=== PATIENT | male | born 1990 | race Caucasian/White ===

== ENCOUNTER 2021-07-28 11:18 | Emergency (ER) | payer BC, SELFPAY ==
--- NOTE | 2021-07-28 11:36 | ED.URI ---
HPI - URI/Sore Throat General Chief Complaint: Upper Respiratory Infection Stated Complaint: cough,sorethroat Time Seen by Provider: 07/28/21 11:47 Source: patient and RN notes reviewed Mode of arrival: ambulatory Limitations: no limitations History of Present Illness HPI Narrative: 31-year-old male presents with concern for 7-day history of cough, sore throat, body aches and fatigue. Reports today is the worst he has felt. He has taken 2 at home negative COVID test. Reports history of strep throat. Reports concern for strep throat. Denies shortness of breath MD elicited complaint: cough and sore throat Related Data Allergies Allergy/AdvReac Type Severity Reaction Status Date / Time No Known Allergies Allergy Unverified 07/22/21 08:06 Review of Systems Review of Systems: CONSTITUTIONAL: Reports malaise. Denies chills, sweats, or fever. EYES: Denies visual changes, redness, or discharge. ENT: Reports rhinorrhea, congestion, sore throat. Denies sinus pain, otalgia CARDIOVASCULAR: Denies chest pain, palpitations, or edema. RESPIRATORY: Reports cough. Denies dyspnea. GASTROINTESTINAL: Denies abdominal pain, nausea, vomiting. Reports diarrhea SKIN: Denies rash or itching. MUSCULOSKELETAL: Reports myalgia. NEUROLOGIC: Denies headache. All systems reviewed & are unremarkable except as noted in HPI and below PMFSH Past Medical History Medical History Anxiety and depression History of gastroschisis Lipids abnormal Surgical History Surgical History [place] teeth removed Family History Family History Other Diabetes mellitus Family history of coronary artery disease Family history of hypercholesterolemia Social History Social History Smoking status: Never smoker Alcohol intake: current Comments At time of signature, agree with nursing past medical, surgical, social and family history. There is no relevant family history pertinent to the presenting complaint Exam Narrative: GENERAL: Well-appearing, well-nourished, and in no acute distress. HEAD: Normocephalic EYES: PERRLA, conjunctivae clear ENT: Nares clear. Mucous membranes moist. TM pearly jaramillo with dull light reflex bilaterally; no tragal tenderness. Oropharynx not erythematous without lesions. Tonsils not enlarged and without exudate, no drooling, no hoarseness, no trismus, uvula midline. NECK: Supple. No lymphadenopathy CHEST: Clear to auscultation, breath sounds equal. No wheezing, rhonchi, rales, or stridor. No respiratory distress, speaks in full sentences. HEART: Regular rate and rhythm. No murmur heard. SKIN: Warm, dry, no rash. NEURO: Alert and oriented x3. PSYCH: Normal mood and affect Course Course Emergency Course: Patient is aware of diagnosis, understands and agrees to treatment plan. Anticipatory guidance given. Patient agrees to follow-up as directed and is aware of reasons to seek care at the emergency department. Portions of this record may have been created with voice recognition software Level of Care: Express Care Visit Vital Signs Vital signs: Reviewed. MDM - URI/Sore Throat MDM Narrative Medical decision making narrative: Differential diagnosis considered: Plascencia virus, strep pharyngitis, allergic rhinitis, upper respiratory tract infection, sinusitis, rhinosinusitis, nasopharyngitis. viral pharyngitis, otitis media, otitis externa, pneumonia, bronchitis, viral cough syndrome, viral syndrome, and influenza. Exam findings show no acute concerns or changes; patient is non-toxic appearing and is in no distress. Patient is appropriate for outpatient treatment and follow-up. Lab Data Attestation: I reviewed the patient's lab results. Critical Care Time Critical Care Time Critical Care Time: No Discharge Plan Discharge
[2021-07-28 11:40] VITALS: BP 138/79; PULSE 97; RESP 18; TEMP 36.3; O2SAT 100
== END 2021-07-28 12:30 | disposition home or self-care (01) ==
PROVIDERS: Emergency Provider Nurse Practitioner; PCP Family Medicine
DX: J02.9 Acute pharyngitis, unspecified (principal); B34.9 Viral infection, unspecified; F41.9 Anxiety disorder, unspecified; F32.A Depression, unspecified
CPT/HCPCS: 87081; 87426; 87880; 99213; C9803; G0463

== ENCOUNTER 2021-10-02 18:22 | Emergency (ER) | payer BC, SELFPAY ==
--- NOTE | ~2021-10-02 | XR_ITS ---
EXAMINATION: XR wrist RT min 3V EXAM DATE: 10/02/2021 18:38 INDICATION: Fall Today , Rt Wrist Pain, Posterior Lateral Deformity. TECHNIQUE: Right wrist frontal, frontal with ulnar deviation, oblique and lateral projections obtain ed and reviewed. There is no prior study for comparison. FINDINGS: Acute closed posttraumatic and mildly comminuted fracture of the right radial distal metaph ysis, probable extension into the radiocarpal joint. Mild volar displacement. There is also suspicion of mild scapholunate joint space widening could indicate at least partial dis sociation, ligamentous injury. The ulna is unremarkable. IMPRESSION: 1. Acute mildly comminuted right radial distal metaphyseal fracture into radiocarpal joint. 2. Suspicion of at least partial scapholunate tear. Reviewed, dictated and finalized at location G. IMPRESSION: 1. Acute mildly comminuted right radial distal metaphyseal fracture into radio carpal joint. 2. Suspicion of at least partial scapholunate tear.
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
--- NOTE | 2021-10-02 19:59 | PC.NURSE ---
Pts CMS intact distally after splint placement. ERNP in to evaluate splint. Pt reports feeling a little tight but has full sensation and mobility. Pt states he does not think it feels to tight. Pt educated on signs of compartment syndrome. Pt cerbalized understanding.
[2021-10-02 20:10] VITALS: BP 112/81; PULSE 118; RESP 18; O2SAT 98
== END 2021-10-02 20:10 | disposition home or self-care (01) ==
LOC: ANHED 19:49
PROVIDERS: Emergency Provider Nurse Practitioner Family; PCP Family Medicine
DX: S59.291A Other physeal fracture of lower end of radius, right arm, initial encounter for closed fracture (principal); V00.131A Fall from skateboard, initial encounter; Y93.51 Activity, roller skating (inline) and skateboarding
CPT/HCPCS: 29125; 73110; 99284; A4565

== ENCOUNTER 2022-03-15 09:48 | Emergency (ER) | payer BC, SELFPAY ==
--- NOTE | 2022-03-15 09:54 | ED.URI ---
HPI - URI/Sore Throat General Stated Complaint: covid symptoms Time Seen by Provider: 03/15/22 09:54 Source: patient Mode of arrival: ambulatory Limitations: no limitations History of Present Illness HPI Narrative: Mr. Martinez is a 31-year-old male patient presenting to the clinic today with complaints of possible COVID, with symptoms starting 1 day ago. He reports he has been in contact with multiple family members with COVID and went to a wedding this past weekend where people had COVID. Yesterday he developed symptoms including cough, sore throat, runny nose, congestion, and nausea He also states he occasionally has diffuse chest pain but denies pain currently. 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 He denies shortness of breath, fever, vomiting, diarrhea, rash, palpitations, dizziness. MD elicited complaint: sore throat and nasal congestion Related Data Home Medications Medication Instructions Recorded Confirmed sertraline 100 mg tablet 100 mg PO HS 03/15/22 03/15/22 Allergies Allergy/AdvReac Type Severity Reaction Status Date / Time fentanyl AdvReac Severe Stopped Verified 03/15/22 10:14 Breathing Review of Systems Review of Systems: Pertinent positives per HPI. Patient denies any fever, chills, rash, headache, visual changes, dizziness, shortness of breath, palpitations, vomiting, diarrhea, constipation, abdominal pain, or any urinary issues. [facility] Past Medical History Medical History Anxiety and depression History of gastroschisis Lipids abnormal Surgical History Surgical History [place] teeth removed Family History Family History Other Diabetes mellitus Family history of coronary artery disease Family history of hypercholesterolemia Social History Social History Social History: Single, works for [employer] [facility] [employer] Smoking status: Never smoker Alcohol intake: current Comments At the time of my signature, I reviewed and agree with the nursing past medical, surgical, social, and family history. There is no relevant family history pertinent to the patient complaint. Exam Narrative: General: Well-developed, well nourished, in no apparent distress Head: Normocephalic, atraumatic Eyes: Pupils equally round and reactive to light bilaterally, EOM intact, sclera and conjunctive clear, no discharge, lids normal Ears: TMs intact and mildly erythematous, ear canals with moderate amount of dry wax, no drainage, grossly hearing normal. Nose: Nares patent, small amount of clear discharge, no inflammation, no sinus tenderness. Mouth: Oral pharynx without lesions or masses, good dentition, MMM, mildly erythematous oropharynx with cobblestoning of the mucosa without tonsillar edema or exudate. Neck: Supple, trachea midline, no enlargement of anterior or posterior cervical nodes, no thyroid masses or goiter palpable. Cardio: Regular rate and rhythm, s1 and s2 normal, no murmur appreciated. Resp: Clear to auscultation bilaterally, no rhonchi, rales, wheezing or rubs Course Course Emergency Course: Portions of this record may have been created with voice recognition software. Level of Care: Express Care Visit Vital Signs Vital signs: Vital signs reviewed MDM - URI/Sore Throat MDM Narrative Medical decision making narrative: At the time of visit patient is resting comfortably on the exam table. The patient's symptoms started yesterday with cough, congestion, sinus drainage. He reports close contact of multiple people with COVID. His at home COVID test yesterday was negative. His COVID test in the clinic today was negative. Due to his symptoms just starting 1 day ago we did a PCR test in t
[2022-03-15 10:02] VITALS: BP 148/85; PULSE 103; RESP 18; TEMP 36.9; O2SAT 100
[2022-03-15 15:57] LABS: SARS-CoV-2 RNA PCR Positive
== END 2022-03-15 10:29 | disposition home or self-care (01) ==
PROVIDERS: Emergency Provider Nurse Practitioner Family; PCP Family Medicine
DX: U07.1 COVID-19 (principal); F41.9 Anxiety disorder, unspecified; F32.A Depression, unspecified
CPT/HCPCS: 87426; 99213; C9803; G0463; U0003; U0005

== ENCOUNTER 2022-09-28 13:01 | Emergency (ER) | payer BC, SELFPAY ==
[2022-09-28 13:10] VITALS: BP 140/85; PULSE 91; RESP 16; TEMP 35.9; O2SAT 100
--- NOTE | 2022-09-28 13:15 | ED.URI ---
HPI - URI/Sore Throat General Chief Complaint: Upper Respiratory Infection Stated Complaint: sorethroat,runny nose Time Seen by Provider: 09/28/22 13:18 History of Present Illness HPI Narrative: 32-year-old male presented for complaint of runny nose and sore throat since yesterday. States roof of mouth appears more red today. He endorses sick contacts as she works as a TSA agent in an airport. He denies shortness of breath, wheezing, nausea, vomiting, fevers or chills. He is not taking anything for symptoms. Related Data Allergies Allergy/AdvReac Type Severity Reaction Status Date / Time fentanyl AdvReac Severe Stopped Verified 09/28/22 13:05 Breathing Review of Systems Review of Systems: CONSTITUTIONAL: Denies body aches, fever, chills, or sweats. EYES: Denies visual changes, redness, or discharge. ENT: Reports rhinorrhea, congestion, sore throat CARDIOVASCULAR: Denies chest pain, palpitations, or edema. RESPIRATORY: Denies dyspnea. GASTROINTESTINAL: Denies abdominal pain, nausea, vomiting, or diarrhea. SKIN: Denies rash, itching, or wounds. MUSCULOSKELETAL: Denies back pain, joint pain, or myalgia. NEUROLOGIC: Denies headache PMFSH Past Medical History Medical History Anxiety and depression Autism spectrum disorder requiring support (level 1) Diagnosed 10/2021 at [facility] - per patient History of gastroschisis Lipids abnormal Surgical History Surgical History [place] teeth removed Family History Family History Other Diabetes mellitus Family history of coronary artery disease Family history of hypercholesterolemia Social History Social History Social History: Single, works for [employer] [facility] [employer]. Smoking status: Never smoker Alcohol intake: current Alcohol use details: ocasionnally Substance use: never Substance use type: does not use Living arrangements: alone Occupation/Education: occupation Additional occupation/education comments: [employer] at [employer] Gender identity (if verbalized by the patient): Male Sexual Orientation (if Verbalized by the Patient): Straight or Heterosexual Agree to blood products: Yes Exam Narrative: GENERAL: well-appearing, no acute distress. EYES: conjunctivae clear ENT: Mucous membranes moist. TMs pearly jaramillo with normal light reflex bilaterally; no tragal tenderness. Oropharynx erythematous without lesions. Tonsils not enlarged No drooling, no hoarseness, no trismus, uvula midline. No tripod positioning, hot potato voice, or soft palate swelling. NECK: Supple. No lymphadenopathy CHEST: Clear to auscultation, breath sounds equal. No respiratory distress, speaks in full sentences. HEART: Regular rate and rhythm. No murmur heard. SKIN: Warm, dry, no rash. NEURO: Alert and oriented x3. Course Course Emergency Course: Patient is aware of diagnosis, understands and agrees to treatment plan. Anticipatory guidance given. Patient agrees to follow-up as directed and is aware of reasons to seek care at the emergency department. Portions of this record may have been created with voice recognition software Level of Care: Express Care Visit Vital Signs Vital signs: Vital Signs Temperature 96.7 F L 09/28/22 13:10 Pulse Rate 91 09/28/22 13:10 Respiratory Rate 16 09/28/22 13:10 Blood Pressure 140/85 09/28/22 13:10 Pulse Oximetry 100 09/28/22 13:10 Oxygen Delivery Room Air 09/28/22 13:10 Temperature 96.7 F L 09/28/22 13:10 Pulse Rate 91 09/28/22 13:10 Respiratory Rate 16 09/28/22 13:10 Blood Pressure 140/85 09/28/22 13:10 Pulse Oximetry 100 09/28/22 13:10 Oxygen Delivery Room Air 09/28/22 13:10 MDM - URI/Sore Throat MDM Narrative Medical decision making narrative:
== END 2022-09-28 13:26 | disposition home or self-care (01) ==
PROVIDERS: Emergency Provider Nurse Practitioner Family; PCP Family Medicine
DX: B34.9 Viral infection, unspecified (principal); F84.0 Autistic disorder
CPT/HCPCS: 87081; 87880; 99213; G0463

== ENCOUNTER 2023-07-21 14:05 | Emergency (ER) | payer OTHER, BC, SELFPAY ==
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
[2023-07-21 15:05] VITALS: BP 140/86; PULSE 110; RESP 16; TEMP 36.7; O2SAT 98
--- NOTE | 2023-07-21 16:08 | ECG_ITS ---
Measurements Intervals [place] Rate: 112 P: 4 [place]: 132 QRS: 41 QRSD: 79 T: 69 QT: 309 QTc: 423 Interpretive Statements SINUS TACHYCARDIA NONSPECIFIC ST & T-WAVE ABNORMALITY- HIGH LATERAL LEADS BASELINE ARTIFACT- I, II, III, AVR, AVL, AVF, V1 ABNORMAL ECG NO PREVIOUS ECG AVAILABLE FOR COMPARISON Electronically Signed On 07-21-2023 19:10:52 ASIC ENGINEER by Asim Borrego D.O.
[2023-07-21 16:59] LABS: Basophils Percent Auto 0.2 % (0.2-1.2); Eosinophils Percent Auto 0.3 % (0-4.4); Hematocrit 46.8 % (42.0-52.0); Hemoglobin 15.5 g/dL (14.0-18.0); Immature Granulocyte Absolute 0.05 K/mm3 (0.00-0.031); Immature Granulocyte Percent A 0.5 % (0-0.5); Lymphocytes Absolute Auto 1.63 K/mm3 (0.9-3.2); Lymphocytes Percent Auto 16.6 % (18.3-44.2); Mean Corpuscular HGB Conc 33.1 g/dl (32-36); Mean Corpuscular Hemoglobin 28.5 pg (26-34); Mean Platelet Volume 10.2 fl (7.4-10.4); Monocytes Absolute Auto 0.5 K/mm3 (0.1-0.6); Monocytes Percent Auto 5.4 % (2.6-8.5); Neutrophils Absolute Auto 7.5 K/mm3 (1.3-6.7); Platelet Count Result 223 k/mm3 (150-375); Red Blood Count 5.44 M/mm3 (4.6-6.20); Red Cell Distribution Width 12.5 % (11.5-14.5); White Blood Count 9.8 K/mm3 (4.5-10.0)
[2023-07-21 17:08] LABS: Alanine Aminotransferase 46 U/L (6-50); Alkaline Phosphatase 102 U/L (38-126); Anion Gap 14 mmol/L (8-16); Aspartate Amino Transferase 33 U/L (17-59); Bilirubin,Total 0.6 mg/dL (0.2-1.3); Blood Urea Nitrogen 15 mg/dL (9-20); Calcium 9.8 mg/dL (8.4-10.2); Carbon Dioxide 22 mmol/L (22-30); Chloride 106 mmol/L (98-107); Estimated CRCL calculation 129 ml/min; Estimated Glomerular Filt Rate > 60; Glucose 97 mg/dL (65-110); Potassium 3.7 mmol/L (3.4-5.0); Sodium 142 mmol/L (137-145)
[2023-07-21 17:19] LABS: Troponin I < 0.012 ng/mL (0.000-0.034)
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
== END 2023-07-21 18:42 | disposition home or self-care (01) ==
PROVIDERS: Emergency Provider Physician Assistant; PCP Family Medicine
DX: S16.1XXA Strain of muscle, fascia and tendon at neck level, initial encounter (principal); S20.219A Contusion of unspecified front wall of thorax, initial encounter; F84.0 Autistic disorder; E55.9 Vitamin D deficiency, unspecified; R00.0 Tachycardia, unspecified; R94.31 Abnormal electrocardiogram [ECG] [EKG]; M47.812 Spondylosis without myelopathy or radiculopathy, cervical region; V43.52XA Car driver injured in collision with other type car in traffic accident, initial encounter
CPT/HCPCS: 36415; 70450; 71260; 72125; 80053; 84484; 85025; 93005; 99284; Q9967

== ENCOUNTER 2024-09-05 09:11 | Outpatient (CLI) | payer BC, SELFPAY ==
--- OUTSIDE RECORDS SUMMARY | 2024-09-05 09:53 | XMS_ITS | Clinical Summary ---
Author Organization [facility] Address [facility] [place] [address] Care Team Providers Care Network Operations Technician Name Role Phone Cady Oliveira MD Primary Care Provider Allergies No known active allergies Medications sertraline 100 MG tablet Take 100 mg by mouth daily. Active acetaminophen 500 MG tablet Take 1,000 mg by mouth every 6 (six) hours as needed for Pain. Active ibuprofen 200 MG tablet Take 400 mg by mouth every 6 (six) hours as needed for Pain. Active Social History Tobacco Use Types Packs/Day Years Used Date Smoking Tobacco: Never Smokeless Tobacco: Current Snuff Alcohol Use Standard Drinks/Week Comments Yes 0 (1 standard drink = 0.6 oz pur e alcohol) occ Comments Unknown Sex and Gender Information Value Date Recorded Sex Assigned at Not on file Legal Sex Unknown 02/09/2017 4:09 PM CDT Gender Identity Not on file Sexual Orientation Not on file Last Filed Vital Signs Vital Sign Reading Time Taken Comments Blood Pressure 108/60 10/07/2021 10:45 AM CDT Pulse 98 10/07/2021 9:55 AM CDT Temperature 37 C (98.6 F) 10/07/2021 10:00 AM CDT Respiratory Rate 16 10/07/2021 10:30 AM CDT Oxygen Saturation 97% 10/07/2021 10:45 AM CDT Inhaled Oxygen Concentration - - Weight 81.6 kg (180 lb) 10/23/2021 8:33 AM CDT Height 170.2 cm (5' 7) 10/23/2021 8:33 AM CDT Body Mass Index 28.19 10/23/2021 8:33 AM CDT Plan of Treatment Health Maintenance Due Date Last Done Comments Cervical Cancer Screening Pap Smear (Age 30 to 64) Every 3 Years 1992 Annual Physical 1995 Hepatitis B Vaccines (2 of 3 - 3-dose series) 01/27/1998 12/30/1997 Hepatitis C 2010 Cervical Cancer Screening Pap with HPV Testing (Age 30 to 64) Every 5 Years 2022 Cervical Cancer Screening with HPV 2022 COVID-19 Vaccine ( season) 2024 05/09/2021 Influenza Adult (#1) 2024 04/10/2020, 04/10/2019, 06/19/2018, Additional history exists DTaP, Tdap and Td Vaccines (8 - Td or Tdap) 09/23/2027 09/22/2017, 12/26/2006, 12/30/1997, Additional history exists Meningococcal Vaccine Aged Out 09/22/2017 No kevin lisa eligible based on patient's age to complete this topic HPV Vaccines Aged Out No longer eligi ble based on patient's age to complete this topic Meningococcal B Vaccine Aged Out No l onger eligible based on patient's age to complete this topic Pneumococcal Vaccine: Pediatrics (0 to 5 Years) and At-Risk Patients (6 to 64 Years) Aged Out No longer eligible based on patient's age to complete this topic RSV Immunizations Under 20 Months Aged Out No longer eligible based on patient's age to complete this topic Medical Devices Implanted Type Area Shuttle Veneering Supervisor Device Identifier Shelf Expiration Date Model / Serial / Lot 2.4mm Cortex Screw (Self-Tapping, T8 Stardrive Recess) Implanted:Qty: 1 on 10/07/2021 by Mikey Vicente MD at [facility] Right: Wrist [id number] / / 2.4mm Cortex Screw (Self-Tapping, T8 Stardrive Recess) Implanted:Qty: 2 on 10/07/2021 by Mikey Vicente MD at [facility] Right: Wrist [id number] / / 2.4mm Va Lcp Two-Column Volar Distal Radius Plate Implanted:Qty: 1 on 10/07/2021 by Mikey Vicente MD at [facility] Right: Wrist [id number] / / 2.4mm Variable Angle Locking Screw (W/ T8 Stardrive Recess) Implanted:Qty: 2 on 10/07/2021 by Mikey Vicente MD at [facility] Right: Wrist 210.120 / / 2.4mm Variable Angle Locking Screw (W/ T8 Stardrive Recess) Implanted:Qty: 2 on 10/07/2021 by Mikey Vicente MD at [facility] Right: Wrist 210.122 / / Insurance BLUE CROSS BLUE [facility] Care Teams Network Operations Technician Relationship Specialty Start Date End Date Cady Oliveira MD [address] [place] [address] PCP - General FAMILY PRACTICE 10/07/21
--- OUTSIDE RECORDS SUMMARY | 2024-09-05 09:53 | XMS_ITS | Continuity of Care Document ---
Author Name [facility] Organization [facility] Care Team Providers Care International Marketing Coordinator Name Role Phone [facility] Unavailable Unavailable Immunizations Combined list of available immunizations from the Department of Defense and Veterans Affairs facilities. Immunization Series Date Given Administered By Site Reaction Lot Number CVX Code Drug Pasteurizer Helper Status Comments Source COVID-19 (PFIZER), MRNA, LNP-S, PF, 30 MCG/0.3 ML DOSE 2 2020 208 complet ed PFR; [id number]; 1 [facility] COVID-19 (PFIZER), MRNA, LNP-S, PF, 30 MCG/0.3 ML DOSE 1 2020 208 complet ed PFR; [id number]; 1 [facility]
[2024-09-05 10:32] LABS: Basophils Percent Auto 0.4 % (0.2-1.2); Eosinophils Absolute Auto 0.2 K/mm3 (0-0.3); Hematocrit 43.5 % (42.0-52.0); Hemoglobin 14.5 g/dL (14.0-18.0); Immature Granulocyte Absolute 0.03 K/mm3 (0.00-0.031); Immature Granulocyte Percent A 0.6 % (0-0.5); Lymphocytes Percent Auto 28.5 % (18.3-44.2); Mean Corpuscular HGB Conc 33.3 g/dl (32-36); Mean Corpuscular Hemoglobin 28.7 pg (26-34); Mean Corpuscular Volume 86.1 fl (80-100); Mean Platelet Volume 10.1 fl (7.4-10.4); Monocytes Absolute Auto 0.5 K/mm3 (0.1-0.6); Monocytes Percent Auto 9.9 % (2.6-8.5); Neutrophils Percent Auto 57.6 % (45.5-73.1); Platelet Count Result 194 k/mm3 (150-375); Red Blood Count 5.05 M/mm3 (4.6-6.20); Red Cell Distribution Width 12.4 % (11.5-14.5); White Blood Count 5.3 K/mm3 (4.5-10.0)
[2024-09-05 10:35] LABS: Alanine Aminotransferase 31 U/L (6-50); Albumin Level 4.5 g/dL (3.5-5.1); Alkaline Phosphatase 90 U/L (38-126); Anion Gap 10 mmol/L (4-12); Aspartate Amino Transferase 27 U/L (17-59); Bilirubin,Total 0.5 mg/dL (0.2-1.3); Blood Urea Nitrogen 13 mg/dL (9-20); Calcium 9.3 mg/dL (8.4-10.2); Carbon Dioxide 27 mmol/L (22-30); Chloride 105 mmol/L (98-107); Cholesterol 135 mg/dL (0-200); Estimated Glomerular Filt Rate > 60; Glucose 94 mg/dL (65-110); HDL Direct 27 mg/dL; Potassium 4.5 mmol/L (3.4-5.0); Sodium 142 mmol/L (137-145); Triglycerides 253 mg/dL (<150)
[2024-09-05 10:46] LABS: LDL Cholesterol Direct 66 mg/dL
[2024-09-05 11:13] LABS: Hemoglobin A1C 5.5 % (<5.7)
[2024-09-05 20:46] LABS: Vitamin D 25 Hydroxy 47.5 ng/mL
== END 2024-09-05 09:12 | disposition home or self-care (01) ==
LOC: ANHGOSHLAB 09:12
PROVIDERS: PCP Family Medicine; Visit Provider Nurse Practitioner Family
DX: F84.0 Autistic disorder (principal); R41.840 Attention and concentration deficit; E55.9 Vitamin D deficiency, unspecified; E78.5 Hyperlipidemia, unspecified; F41.9 Anxiety disorder, unspecified; F32.9 Major depressive disorder, single episode, unspecified; R73.01 Impaired fasting glucose
CPT/HCPCS: 36415; 80053; 80061; 82306; 83036; 84443; 85025

== ENCOUNTER 2025-06-03 08:56 | Emergency (ER) | payer BC, SELFPAY ==
[2025-06-03 09:06] VITALS: BP 143/86; PULSE 87; RESP 18; TEMP 36.3; O2SAT 99
--- OUTSIDE RECORDS SUMMARY | 2025-06-03 09:41 | XMS_ITS | Clinical Summary ---
Author Organization [place] Address [facility] [place] [address] Care Team Providers Care Glost Kiln Placer Name Role Phone Cady Oliveira MD Primary [...] 3-dose series) 01/27/1998 12/30/1997 Hepatitis C 2010 HPV Vaccines (1 - 3-dose SCDM series) 2019 Cervical Cancer Screening Pap with HPV Testing (Age 30 to 64) Every 5 Years 2022 Cervical Cancer Screening with HPV 2022 COVID-19 Vaccine ( season) 2025 05/09/2021 Influenza Adult (#1) 2025 04/10/2020, 04/10/2019, 06/19/2018, Additional history exists DTaP, Tdap and Td Vaccines (8 - Td or Tdap) 09/23/2027 09/22/2017, 12/26/2006, 12/30/1997, Additional history exists Meningococcal Vaccine Aged Out 09/22/2017 No kevin lisa eligible based on patient's age to complete this topic Hepatitis A Vaccines Aged Out No long er eligible based on patient's age to complete this topic Meningococcal B Vaccine Aged Out No l onger eligible based on patient's age to complete this topic Pneumococcal Vaccine: Pediatrics (0 to 5 Years) and At-Risk Patients (6 to 49 Years) Aged Out No longer eligible based on patient's age to complete this topic RSV Immunizations Under 20 Months Aged Out No longer eligible based on patient's age to complete this topic Medical Devices Implanted Type Area Machine Welt Butter Device Identifier Shelf Expiration Date Model / Serial / Lot 2.4mm Cortex Screw (Self-Tapping, T8 Stardrive Recess) Implanted:Qty: 1 on 10/07/2021 by Mikey Vicente MD at [facility] Right: Wrist [id number] / / 2.4mm Cortex Screw (Self-Tapping, T8 Stardrive Recess) Implanted:Qty: 2 on 10/07/2021 by Mikey Vicente MD at [facility] Right: Wrist 201.766 / / 2.4mm Va Lcp Two-Column Volar Distal Radius Plate Implanted:Qty: 1 on 10/07/2021 by Mikey Vicente MD at [facility] Right: Wrist 02.111.630 / / 2.4mm Variable Angle Locking Screw (W/ T8 Stardrive Recess) Implanted:Qty: 2 on 10/07/2021 by Mikey Vicente MD at [facility] Right: Wrist 02.210.120 / / 2.4mm Variable Angle Locking Screw (W/ T8 Stardrive Recess) Implanted:Qty: 2 on 10/07/2021 by Mikey Vicente MD at [facility] Right: Wrist [id number] / / Insurance [facility] Care Teams Glost Kiln Placer Relationship Specialty Start Date End Date Cady Oliveira MD [address] [place] [address] PCP - General FAMILY PRACTICE 10/07/21
--- NOTE | 2025-06-03 09:54 | ED_ITS ---
HPI - URI/Sore Throat General Chief Complaint: Upper Respiratory Infection Stated Complaint: Fatigue, body aches Time Seen by Provider: 06/03/25 09:47 Source: patient and RN notes reviewed Mode of arrival: ambulatory Limitations: no limitations History of Present Illness HPI Narrative: 35-year-old male patient presents today with a 2 day history of foot, chills, fatigue, body aches, sore throat. He is taking Zyrtec and use a humidifier without much improvement. Denies shortness of breath. Works for [employer]. Related Data Home Medications ?Medication ?Instructions ?Recorded ?Confirmed ?Last Taken ?Type cholecalciferol (vitamin D3) 50 50 mcg PO DAILY 09/25/24 Unknown History mcg (2,000 unit) tablet Allergies Allergy/AdvReac Type Severity Reaction Status Date / Time fentanyl AdvReac Severe Stopped Verified 09/25/24 15:41 Breathing PMFSH Past Medical History Medical History Dyslipidemia Vitamin D deficiency Autism spectrum disorder requiring support (level 1) Diagnosed 10/2021 at [facility] - per patient Anxiety and depression History of gastroschisis Surgical History Surgical History H/O right wrist surgery (~10/07/21) ORIF of right wrist fracture [place] teeth removed Family History Family History Other Diabetes mellitus Family history of coronary artery disease Family history of hypercholesterolemia Social History Social History Social History: Single, works for [employer] [place] [employer] [address] Smoking status: Never smoker Alcohol intake: current Alcohol use details: ocasionnally Substance use: never Substance use type: does not use Lack of Transportation: No Lack of Food: Never True Current Housing: I Have Housing Concerned About Future Housing: No Difficulty Paying Gas/Electric Bills: No Difficulty Paying for Meds: No Currently Unemployed: No Education: Master's Degree or Higher Difficulty w/ Childcare or Family Care: No Living arrangements: alone Occupation/Education: occupation Additional occupation/education comments: [employer] at [employer] Gender identity (if verbalized by the patient): Male Sexual Orientation (if Verbalized by the Patient): Straight or Heterosexual Agree to blood products: Yes Comments At time of signature, I have reviewed and agree with nursing past medical, surgical, social and family history unless otherwise noted. Please see nursing chart for further information. There is no relevant family history pertinent to the presenting complaint Exam Narrative: GENERAL: Mildly ill-appearing, well-nourished, and in no acute distress. Mildly diaphoretic HEAD: Normocephalic, atraumatic. EYES: EOMI. No redness or drainage. Conjunctivae normal. ENT: Mucous membranes pink and moist. Nares clear. No rhinorrhea. TMs normal bilaterally. Throat very mildly erythematous without edema or exudate. Uvula midline. NECK: Normal AROM. Supple. No lymphadenopathy. CHEST: No respiratory distress. Clear to auscultation. HEART: Regular rate and rhythm. No murmur appreciated. EXTREMITIES: Normal range of motion. No edema. SKIN: Warm, dry, no rash. Capillary refill normal. Normal skin turgor. NEURO: No focal deficits. Alert and oriented x3. Gait steady. PSYCH: Normal affect. No signs of depression or anxiety. Course Course Level of Care: Express Care Visit Vital Signs Vital signs: Vital Signs Temperature 97.3 F L 06/03/25 09:06 Pulse Rate 87 06/03/25 09:06 Respiratory Rate 18 06/03/25 09:06 Blood Pressure 143/86 H 06/03/25 09:06 Pulse Oximetry 99 06/03/25 09:06 Oxygen Delivery Room Air 06/03/25 09:06 Temperature 97.3 F L 06/03/25 09:06 Pulse Rate 87 06/03/25 09:06 Respiratory Rate 18 06/03/25 09:06 Blood Pressure 143/86 H 06/03/25 09:06 Pulse Oximetry 99 06/03/25 09:06 Oxygen Delivery Room Air 06/03/25 09:06 Reviewed MDM - URI/Sore Throat MDM Narrative Medical decision making narrative: 35-year-old male patient presents today with a 2 day history of foot, chills, fatigue, body aches, sore throat. He is taking Zyrtec and use a humidifier without much improvement. Denies shortness of breath. Works for [employer]. Upon exam, patient is mildly ill appearing with some diaphoresis and mildly erythematous throat without edema or exudate. His COVID-19, influenza, and rapid strep are negative. Strep culture pending. Symptoms likely viral in etiology. Discussed [id number] medication use and duration of illness. No prescription medications indicated at this time. Anticipatory guidance given. Vital signs stable. Patient agrees with plan. Differential Diagnosis Differential diagnosis: Likely upper respiratory infection, sinusitis, viral infection, influenza, pharyngitis and other (Strep throat, COVID) Lab Data Attestation: I reviewed the patient's lab results. Lab results narrative: Rapid strep negative, influenza negative, COVID negative Critical Care Time Critical Care Time Critical Care Time: No Discharge Plan Discharge Clinical Impression: Viral syndrome Patient Disposition: Home Condition: Stable Instructions: Viral Syndrome (ED) Additional Instructions: Your COVID-19, influenza, and rapid strep swab were negative today at [facility]. You will be notified in a few days if the culture comes back positive for strep, and appropriate antibiotics will be called in for you at that time. Your symptoms are likely due to a viral illness, which is not treated with antibiotics. Viral symptoms can be present for up to 7-10 days. Take Tylenol or ibuprofen for fever or pain. Rest and stay hydrated. Follow up with your PCP in 7 days if symptoms are not improving. Go to the ER immediately if you have any difficulty breathing or swallowing. Patient Language: Cambodian Prescriptions: No Action cholecalciferol (vitamin D3) 50 mcg (2,000 unit) tablet 50 mcg PO DAILY atorvastatin [Lipitor] 20 mg tablet 20 mg PO QHS Qty: 90 2RF sertraline 100 mg tablet 100 mg PO QHS Qty: 90 0RF Rx Instructions: NEEDS APPOINTMENT FOR FURTHER REFILLS. dextroamphetamine-amphetamine [Adderall] 20 mg tablet 20 mg PO DAILY Qty: 30 0RF Follow-up/Referrals: Debbi Oliveira MD [Primary Care Provider, Family Practice] Stand Alone Forms: Work/School Release IP Time of Disposition: 09:57
[2025-06-03 11:53] LABS: EDCOVIDSCREEN Negative (Negative); EDINFLUASCREEN Negative (Negative); EDINFLUBSCREEN Negative (Negative)
[2025-06-03 11:53] LABS: EDSTREPNEGPOS1 Negative (Negative)
== END 2025-06-03 10:01 | disposition home or self-care (01) ==
PROVIDERS: Emergency Provider Nurse Practitioner; PCP Family Medicine
DX: B34.9 Viral infection, unspecified (principal); Z20.822 Contact with and (suspected) exposure to COVID-19; E78.5 Hyperlipidemia, unspecified; E55.9 Vitamin D deficiency, unspecified; F84.0 Autistic disorder
CPT/HCPCS: 87081; 87426; 87804; 87880; 99213; G0463